=== PATIENT | female | born 1980 | race Caucasian/White ===

== ENCOUNTER 2016-10-28 15:44 | Emergency (ER) | payer OTHER ==
[~2016-10-28] VITALS: Ht 170.2 cm; Wt 126.1 kg
--- NOTE | ~2016-10-28 | CT71 ---
[facility] A Service [facility] RADIOLOGY TEXT RESULTS PATIENT: DELLA MICHELLE LOCATION: [facility] : [birth year] UNIT #: [id number] AGE: [address]: Jessenia Ruvalcaba MD SEX: F ORDER DR: [id number] [facility]. [place], [place] [address] [id number] MR#: [id number] Acc #: [id number] NAME: DELLA MICHELLE. : 1980 SEX: F STUDY DATE/TIME: 10/28/2016 19:23 UNIT: [facility] ROOM: STUDY DESCRIPTION: CT Head Wo Contrast Attending Physician: Jessenia Ruvalcaba M.D. Ordering Physician: Jessenia Ruvalcaba M.D. Primary Care Physician: Flor Gaspar Aprn MEDICAL IMAGING REPORT This report is preliminary unless electronic signature is present EXAM CT head without contrast DATE 10/28/2016 HISTORY 36-year-old female hit head after falling from a chair one hour prior to arrival with right ear pain and posterior head pain. COMPARISON Noncontrast CT head 04/25/2011. TECHNIQUE This CT exam was performed with one or more of the following radiation dose reduction techniques: automatic control, adjustment of mA and/or kV according to patient size, and iterative reconstruction. FINDINGS No acute displaced calvarial fracture is identified. Major paranasal sinuses appear clear. No acute intracranial hemorrhage, mass lesions, mass effect or midline shift is seen and there is no evidence of acute or evolving infarct. Ventricular configuration is within normal limits. IMPRESSION No acute intracranial findings. Dictated by... Nella Herrera M.D. [facility] A Service [facility] RADIOLOGY TEXT RESULTS PATIENT: DELLA MICHELLE LOCATION: [facility] : 80 UNIT #: [id number] AGE: [address]: Jessenia Ruvalcaba MD SEX: F ORDER DR: THIS IS AN ELECTRONICALLY VERIFIED REPORT Nella Herrera M.D. at 10/29/2016 2:03 PM SARA/alexia TD: 10/29/2016 02:10 JOB #: [id number] MEDICAL IMAGING REPORT Page 1 of 1 COPY
[~2016-10-28 15:44] MED LIST: ACETAMINOPHEN; ACETAMINOPHEN PO; ADVAIR 2501 DISK W/D; ADVAIR 500-501 EACH IH; ADVAIR 5001 DISK W/D PO; ALBUTEROL MININEB NEB; ALBUTEROL17 G1 IH; ALBUTEROL17 GM; ALBUTEROL17 GM INH; ALBUTEROL17 GM NEB; ALBUTEROL17 GM PO; AMLODIPINE BESY10 MG PO; AMOXICILLIN PO; AMOXICILLIN500 M1 PO; AMOXIL875 MG PO; ANTIVERT PO; ANTIVERT12.5 MG PO; ANUSOL SUPP1 SUPP PR; ASTELIN137 MCG; ASTELIN137 MCG INH; ATARAX PO; ATIVAN INJ; ATIVAN PO; ATIVAN0.5 MG PO; AUGMENTIN PO; AUGMENTIN875 MG DOB; AVELOX400 MG PO; AZELASTINE137 MCG/0. INH; BACTRIM DS TABL1 TA1 PO; BENADRYL; BENADRYL PO; BENADRYL25 M1 PO; BENZONATATE PO; CAPOZIDE; CELEXA; CELEXA PO; CIPRO PO; CIPRO500 MG/5 M PO; CITALOPRAM HBR40 MG PO; CLARITIN10 MG; CLARITIN10 MG PO; CLINDAMYCIN HC300 MG PO; COMBIVENT INH14.7 GM; COMBIVENT U/D3 ML INH; CRESTOR40 MG PO; DARVOCET-N 1001 TA1 DOB; DIAZEPAM PO; DOXYCYCLINE; DULERA 200 MCG/13 GM; DUONEB 2.5-0.5 M3 ML; DUONEB 2.5-0.5 M3 ML NEB; EPIPEN0.3 MG/0.1 IM; FAMOTIDINE PO; FLAGYL PO; FLEXERIL10 MG PO; FLOVENT HFA12 GM; HYDRALAZINE HCL50 MG PO; HYDROXYZINE HCL10 MG PO; IBUPROFEN PO; INCRUSE ELLI62.5 MCG INH; INTAL INH; KEFLEX PO; KEFLEX500 MG PO; LEVAQUIN; LEVAQUIN PO; LEVAQUIN750 MG PO; LEXAPRO; LEXAPRO PO; LIPITOR PO; LIPITOR20 MG PO; LISINOPRIL; LISINOPRIL10 MG PO; MEDI-MECLIZINE25 M1 PO; MEDROL; MEDROL DOSEPAK4 MG DOB; MEDROL DOSEPAK4 MG PO; MEDROL PO; MEDROL4 MG/DOSE- PO; METFORMIN HCL500 M4 PO; MUCINEX; MUCINEX DM1 TAB.SR .; MUCINEX DM1 TAB.SR . PO; MUCINEX PO; NASONEX17 GM; NICOTINE T1 PATCH .2; NICOTINE T1 PATCH .2 TOP; NORVASC PO; NORVASC10 MG PO; OMEPRAZOLE10 MG PO; OMNICEF; OMNICEF300 M1 PO; ORUDIS75 M1 PO; PAROXETINE HCL20 M1 PO; PATIENT'S PHARMACY; PAXIL PO; PEPCID PO; PHENERGAN W/CO120 ML PO; PHENERGAN25 MG PO; PREDNISONE; PREDNISONE PO; PREDNISONE10 MG PO; PREDNISONE10 MG/DOSE PO; PREDNISONE50 MG PO; PRILOSEC PO; PROAIR HFA8.5 GM IH; PULMICORT200 MCG/AE; PYRIDIUM100 MG PO; ROBITUSSIN-DM120 ML; SINGULAIR PO; SPIRIVA18 MCG PO; SYMBICORT INH; SYNTHROID0.05 MG DOB; TAGAMET PO; THEOPHYLLIN PO; VIBRAMYCIN100 M1 PO; VISCOUS XYLOCAINE; XOPENEX HFA15 GM NEB; ZANTAC150 M1 PO; ZETIA PO; ZITHROMAX; ZITHROMAX PO; ZITHROMAX1 G/PKT PO; ZITHROMAX500 MG PO; ZOFRAN PO; ZYRTEC PO; ZYRTEC10 M2 PO; [UNRECOGNIZED DRUG - OTHER]; [UNRECOGNIZED DRUG - OTHER]
== END 2016-10-28 20:10 | disposition home or self-care (01) ==
LOC: CED 15:44
DX: S00.03XA Contusion of scalp, initial encounter (principal); W07.XXXA Fall from chair, initial encounter
CPT/HCPCS: 70450; 99284